=== PATIENT | male | born 1990 ===

== ENCOUNTER 2022-12-07 04:48 | Day surgery (SDC) | payer OTHER ==
[2022-12-03 11:58] VITALS: BMI 28.3
[2022-12-07 13:01] VITALS: BP 113/73; PULSE 76; RESP 20; TEMP 98
== END 2022-12-07 13:01 | disposition home or self-care (01) ==
LOC: JASU-ENDO 04:48
PROVIDERS: ATTEND Student in an Organized Health Care Education/Training Program
PROC: 0DB78ZX Excision of Stomach, Pylorus, Via Natural or Artificial Opening Endoscopic, Diagnostic (ICD-10-PCS; 2022-12-07)
PROC: 0DB68ZX Excision of Stomach, Via Natural or Artificial Opening Endoscopic, Diagnostic (ICD-10-PCS; principal; 2022-12-07 13:30)
DX: K29.70 Gastritis, unspecified, without bleeding (principal)
CPT/HCPCS: 88305-TC; 88342-TC